=== PATIENT | female | born 1960 | race Caucasian/White ===

== ENCOUNTER 2019-08-30 11:05 | Emergency (ER) | payer SELFPAY ==
[2019-08-30 11:14] VITALS: BP 132/82
[2019-08-30] MEDS ORDERED: IV NORMAL SALINE 1,000ML 1,000 ML IV SCH (11:16)
--- NOTE | 2019-08-30 11:24 | PHYS DOC ---
Past History Past Medical History: Asthma Past Surgical History: No Surgical History Smoking: Non-smoker Alcohol Use: Occasionally Additional Alcohol Information: 1-2 beers a day Drug Use: None Adult General Chief Complaint Chief Complaint: ABDOMINAL PAIN HPI HPI Patient is a 58-year-old female presents with right lower quadrant pain that has been getting worse over the past 2 days. Became significantly worse today. Worse with bumps on the car ride here. Patient has taken no pain medicine for it. There is decreased appetite, no nausea or vomiting. No diarrhea. Pain is severe in intensity. No radiation of the discomfort. No migration of the pain to the right lower quadrant, it has always been in the right lower quadrant. No dysuria or hematuria.[] Review of Systems Review of Systems Constitutional: Denies fever or chills [] Eyes: Denies change in visual acuity, redness, or eye pain [] HENT: Denies nasal congestion or sore throat [] Respiratory: Denies cough or shortness of breath [] Cardiovascular: No chest pain or palpitations[] GI: See history of present illness[] : Denies dysuria or hematuria [] Musculoskeletal: Denies back pain or joint pain [] Integument: Denies rash or skin lesions [] Neurologic: Denies headache, focal weakness or sensory changes [] Endocrine: Denies polyuria or polydipsia [] All other systems were reviewed and found to be within normal limits, except as documented in this note. Allergies Allergies Allergies Coded Allergies Type Severity Reaction Last Updated Verified No Known Drug Allergies 08/30/19 No Physical Exam Physical Exam Constitutional: Well developed, well nourished, moderate discomfort, non-toxic appearance. [] HENT: Normocephalic, atraumatic, bilateral external ears normal, oropharynx moist, no oral exudates, nose normal. [] Eyes: PERRLA, EOMI, conjunctiva normal, no discharge. [] Neck: Normal range of motion, no tenderness, supple, no stridor. [] Cardiovascular:Heart rate is tachycardic with a regular rhythm, no murmur [] Lungs & Thorax: Bilateral breath sounds clear to auscultation [] Abdomen: Bowel sounds normal, no numbness to palpation in the right lower quadrant, negative Smith's sign, able to sit up with significant discomfort, negative Rovsing sign, no masses, no pulsatile masses. [] Skin: Warm, dry, no erythema, no rash. [] Back: No tenderness, no CVA tenderness. [] Extremities: No tenderness, no cyanosis, no clubbing, ROM intact, no edema. [] Neurologic: Alert and oriented X 3, normal motor function, normal sensory function, no focal deficits noted. [] Psychologic: Affect normal, judgement normal, mood normal. [] Current Patient Data Vital Signs Vital Signs Date Time Temp Pulse Resp B/P (MAP) Pulse Ox O2 Delivery O2 Flow Rate FiO2 08/30/19 11:14 98.2 128 20 96 Room Air EKG EKG [] Radiology/Procedures Radiology/Procedures PROCEDURE: CT ABDOMEN PELVIS WO CONTRAST CT abdomen and pelvis without contrast: Reason for examination: Right lower quadrant abdominal pain and flank pain for 2 days. Helical images were obtained through the abdomen and pelvis with no contrast administered. Reconstruction was performed in sagittal and coronal planes. Exposure: One or more of the following individualized dose reduction techniques were utilized for this examination: 1. Automated exposure control 2. Adjustment of the mA and/or kV according to patient size 3. Use of iterative reconstruction technique. There is some linear atelectasis at the lung bases, left greater than right. The heart size is normal with no pericardial effusion. No abnormality seen at the liver, spleen, adrenal glands, gallbladder or pancreas. No abnormality seen at the stomach or duodenum. The small intestinal tract shows no abnormal dilatation or wall thickening or obstruction. The colon shows presence of diverticuli but no evidence of diverticulitis or colitis. No abnormality seen at the appendix. The kidneys show no renal masses, renal calculi, hydronephrosis or evidence of obstructive uropathy. No abnormality seen at the bladder or uterus. Uterus however is displaced slightly to the right which appears to be due to a large complex mass which probably arises from the left ovary and appears to measure at least 23.7 cm in transverse dimension, 12.7 cm in AP dimension and extends craniocaudally at least 27.4 cm. Cystadenoma/cystadenocarcinoma is suspected. There is no free fluid seen in the abdomen. There is a mild lumbar scoliosis with convexity to the left. No acute bony abnormalities are seen. 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 No evidence of renal calculus or obstructive uropathy. Linear atelectasis at the lung bases. Diverticuli in the sigmoid colon but no evidence of diverticulitis.[] Course & Med Decision Making Course & Med Decision Making Pertinent Labs and Imaging studies reviewed. (See chart for details) ED course: Patient arrived, was placed in bed, and tolerated exam well. IV access was established, she was given IV fluids which improved her heart rate from the 130s down to the 100s. She was given pain medicine as well. She was transported to and from [place] with any complications. After the return of laboratory and imaging findings, these were discussed with the patient and family voiced understanding. Consultation was made with hospitalist service. She is being transferred to [facility] given the greater availability of specialists, specifically surgery, oncology, [employer]. She was transported in improved condition. Medical decision making: Patient with right lower quadrant pain. There is no evidence of appendicitis nor obstruction due to ureterolithiasis. However there is a large mass, most likely left ovarian in origin, that needs to be addressed along with pain management.[] Dragon Disclaimer Dragon Disclaimer This electronic medical record was generated, in whole or in part, using a voice recognition dictation system. Departure Departure: Impression: Primary Impression: Ovarian mass, left Additional Impression: Right lower quadrant abdominal pain Disposition: 05 TRANSFER OTHER Admitting Physician: Alli Corral Condition: IMPROVED Referrals: KAYLA NICOLAS PA-C (PCP) Problem Qualifiers GABRIEL PIEDRA DO Aug 30, 2019 11:24
[2019-08-30] MEDS: MORPHINE SULFATE 4 MG/ML DISP.SYRIN. IV/SQ PRN ×3 (11:28→13:12)
[2019-08-30] MEDS ORDERED: ONDANSETRON PF 4 MG/2 ML VIAL. IVP ONE (11:30)
[2019-08-30 11:48] LABS: BASO # 0.1 x10^3/uL (0.0-0.2); BASO % 1 % (0-3); EOS # 0.1 x10^3/uL (0.0-0.7); EOS % 1 % (0-3); HEMATOCRIT 44.6 % (36.0-47.0); HEMOGLOBIN 14.9 g/dL (12.0-15.5); LYMPH # 1.7 x10^3/uL (1.0-4.8); LYMPH % 15 % (24-48); MEAN CORPUSCULAR HEMOGLOBIN 33 pg (25-35); MEAN CORPUSCULAR HGB CONC 33 g/dL (31-37); MEAN CORPUSCULAR VOLUME 100 fL (79-100); MONO # 0.9 x10^3/uL (0.0-1.1); MONO % 8 % (0-9); NEUT # 8.3 x10^3uL (1.8-7.7); NEUT % 75 % (31-73); PLATELET COUNT 318 x10^3/uL (140-400); RED BLOOD COUNT 4.46 x10^6/uL (3.50-5.40); RED CELL DISTRIBUTION WIDTH 12.9 % (11.5-14.5); WHITE BLOOD COUNT 11.1 x10^3/uL (4.0-11.0)
[2019-08-30 11:54] LABS: ALBUMIN 3.4 g/dL (3.4-5.0); ALBUMIN/GLOBULIN RATIO 0.8 (1.0-1.7); CALCIUM 8.5 mg/dL (8.5-10.1); CREATININE 0.6 mg/dL (0.6-1.0); POTASSIUM 3.8 mmol/L (3.5-5.1); TOTAL BILIRUBIN 0.3 mg/dL (0.2-1.0); TOTAL PROTEIN 7.6 g/dL (6.4-8.2)
--- NOTE | 2019-08-30 12:03 | RAD ---
CT abdomen and pelvis without contrast: Reason for examination: Right lower quadrant abdominal pain and flank pain for 2 days. Helical images were obtained through the abdomen and pelvis with no contrast administered. Reconstruction was performed in sagittal and coronal planes. Exposure: One or more of the following individualized dose reduction techniques were utilized for this examination: 1. Automated exposure control 2. Adjustment of the mA and/or kV according to patient size 3. Use of iterative reconstruction technique. There is some linear atelectasis at the lung bases, left greater than right. The heart size is normal with no pericardial effusion. No abnormality seen at the liver, spleen, adrenal glands, gallbladder or pancreas. No abnormality seen at the stomach or duodenum. The small intestinal tract shows no abnormal dilatation or wall thickening or obstruction. The colon shows presence of diverticuli but no evidence of diverticulitis or colitis. No abnormality seen at the appendix. The kidneys show no renal masses, renal calculi, hydronephrosis or evidence of obstructive uropathy. No abnormality seen at the bladder or uterus. Uterus however is displaced slightly to the right which appears to be due to a large complex mass which probably arises from the left ovary and appears to measure at least 23.7 cm in transverse dimension, 12.7 cm in AP dimension and extends craniocaudally at least 27.4 cm. Cystadenoma/cystadenocarcinoma is suspected. There is no free fluid seen in the abdomen. There is a mild lumbar scoliosis with convexity to the left. No acute bony abnormalities are seen. 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 No evidence of renal calculus or obstructive uropathy. Linear atelectasis at the lung bases. Diverticuli in the sigmoid colon but no evidence of diverticulitis. Electronically signed by: Sonia Garcia MD (08/30/2019 12:00 PM) [facility]
[2019-08-30 12:50] LABS: BACTERIA,URINE FEW /HPF (0-FEW); BILIRUBIN,URINE NEG (NEG); CLARITY,URINE HAZY; COLOR,URINE YELLOW; GLUCOSE,URINE NEG (NEG); NITRITE,URINE NEG (NEG); RBC,URINE 0 /HPF (0-2); SQUAMOUS EPITHELIAL CELL,UR MOD /LPF; UROBILINOGEN,URINE 0.2 mg/dL (0.2 mg/dL); WBC,URINE 0 /HPF (0-4)
[2019-08-30] MEDS ORDERED: ONDANSETRON PF 4 MG/2 ML VIAL. IV ONE (13:15)
== END 2019-08-30 13:15 | disposition short-term general hospital (02) ==
LOC: ER 11:05
DX: N83.9 Noninflammatory disorder of ovary, fallopian tube and broad ligament, unspecified (principal); J45.909 Unspecified asthma, uncomplicated
CPT/HCPCS: 36415; 74176; 80053; 81001; 81025; 83690; 85025; 96374; 96375; 96376; 99285; J2270; J2405; J7030